=== PATIENT | male | born 1985 | race Hispanic/Latino ===

== ENCOUNTER 2018-06-25 15:32 | Emergency (ER) | payer SELFPAY ==
[~2018-06-25] VITALS: Ht 167.6 cm; Wt 73.6 kg
[2018-06-25 16:51] LABS: HEMATOCRIT 45.5 % (39.0-50.0); HEMOGLOBIN 15.7 g/dl (14.0-18.0); IMMATURE GRANULOCYTES 0.5 % (0.0-5.0); MEAN CELL VOLUME 80.2 fL CALC (80.0-100.0); MEAN CORPUSCULAR HGB 27.7 pG CALC (26.0-32.0); MEAN CORPUSCULAR HGB CONC 34.5 g/L CALC (32.0-36.0); NEUT# 13.75 thou/uL (1.82-7.42); RED BLOOD COUNT 5.67 mill/uL (4.70-6.10); RED CELL DISTRI WIDTH 12.6 % (11.5-15.5)
[2018-06-25 17:04] LABS: ALBUMIN 5.1 g/dL (3.2-5.0); ALKALINE PHOSPHATASE 116 u/l (38-126); ANION GAP 17 (6-22 (CALC)); BILIRUBIN, TOTAL 1.1 mg/dL (0.0-1.4); BUN 14 mg/dL (9-20); BUN/CREATININE RATIO 19 (12-20 (CALC)); CARBON DIOXIDE 24 mmol/l (22-30); CHLORIDE 101 mmol/l (95-108); CREATININE 0.7 mg/dL (0.7-1.3); GFR > 60 ML/MIN (>=60 (CALC)); GFR FOR AFR.AMER. > 60 ML/MIN (>=60 (CALC)); LIPASE 35 u/l (23-300); POTASSIUM 3.7 mmol/l (3.5-5.1); SGOT/AST 44 u/l (17-59); SODIUM 139 mmol/l (137-146); TOTAL PROTEIN 8.9 g/dL (6.3-8.2)
[2018-06-25 17:05] LABS: AMYLASE < 30 u/l (30-110)
[2018-06-25] MEDS ORDERED: PEPCID20 MG PO (18:35)
[2018-06-25 19:10] VITALS: BP 150/77
== END 2018-06-25 19:17 | disposition home or self-care (01) | DRG 392 ==
LOC: ED 15:32
DX: R10.11 Right upper quadrant pain (principal); R10.13 Epigastric pain
CPT/HCPCS: Q9967; S0164

== ENCOUNTER 2018-06-25 22:23 | Inpatient (IN) | payer SELFPAY ==
[~2018-06-25] VITALS: Ht 170.2 cm; Wt 73.9 kg
[~2018-06-25 22:23] MED LIST: PEPCID20 MG PO
--- NOTE | 2018-06-25 22:51 | NUR ---
PT. AMBULATED TO ROOM 8 WITH C/O BEING SEEN HERE TODAY FOR ABD. PAIN. AND PT. STATES THE PAIN HAS NON SUBSIDED BUT HAS GOTTEN WORSE.
--- NOTE | 2018-06-25 23:51 | NUR ---
RESTING ON STRETCHER, NO C/O AT THIS TIME.
[2018-06-26] VITALS (10 sets, daily range): BP systolic 102–121; BP diastolic 52–70
[2018-06-26 00:14] LABS: HEMATOCRIT 44.7 % (39.0-50.0); HEMOGLOBIN 15.3 g/dl (14.0-18.0); IMMATURE GRANULOCYTES 0.4 % (0.0-5.0); MEAN CELL VOLUME 80.3 fL CALC (80.0-100.0); MEAN CORPUSCULAR HGB 27.5 pG CALC (26.0-32.0); MEAN CORPUSCULAR HGB CONC 34.2 g/L CALC (32.0-36.0); NEUT# 13.27 thou/uL (1.82-7.42); RED BLOOD COUNT 5.57 mill/uL (4.70-6.10); RED CELL DISTRI WIDTH 12.6 % (11.5-15.5)
[2018-06-26 00:26] LABS: ALBUMIN 4.8 g/dL (3.2-5.0); ALKALINE PHOSPHATASE 105 u/l (38-126); ANION GAP 17 (6-22 (CALC)); BILIRUBIN, TOTAL 1.3 mg/dL (0.0-1.4); BUN 13 mg/dL (9-20); BUN/CREATININE RATIO 17 (12-20 (CALC)); CARBON DIOXIDE 24 mmol/l (22-30); CHLORIDE 101 mmol/l (95-108); CREATININE 0.8 mg/dL (0.7-1.3); GFR > 60 ML/MIN (>=60 (CALC)); GFR FOR AFR.AMER. > 60 ML/MIN (>=60 (CALC)); POTASSIUM 3.8 mmol/l (3.5-5.1); SGOT/AST 35 u/l (17-59); SODIUM 138 mmol/l (137-146); TOTAL PROTEIN 8.4 g/dL (6.3-8.2)
--- NOTE | 2018-06-26 01:07 | NUR ---
IVF, AND IV MEDS GIVEN PER MD ORDER.
--- NOTE | 2018-06-26 01:26 | NUR ---
PT. DRINKING PO CONTRAST, NO C/O NAUSEA OR VOMITING NOTED.
--- NOTE | 2018-06-26 02:26 | NUR ---
RESTING ON STRETCHER, NO C/O.
--- NOTE | 2018-06-26 03:00 | NUR ---
IN ROOM TO DISCUSS CLINICAL FINDINGS WITH PT. IN [place] LANGUAGE OF [place], AND ALSO TO MAKE HIM AWARE OF ADMISSION. ER WORKERS COMPENSATION [place]. PT. VERBALIZED UNDERSTANDING.
--- NOTE | 2018-06-26 03:21 | NUR ---
PT. STATES HIS ABD. PAIN IS NOW DECREASED TO A 2 ON A SCALE OF 1-10.
--- NOTE | 2018-06-26 03:24 | NUR ---
IV ABT. STARTED PER MD ORDER.
--- NOTE | 2018-06-26 03:34 | NUR ---
PT. TAKEN TO ICU VIA STRETCHER, NO C/O.
--- NOTE | 2018-06-26 03:40 | NUR ---
ARRIVES FROM ER VIA STRETCHER. AMBULATORY WITH STEADY GAIT TO STANDING SCALE, AMBULATORY FROM STANDING SCALE IN HALLWAY TO ROOM #2. NO DISTRESS. PT. REPORTS MILD ABDOMINAL PAIN ON ARRIVAL TO ICU. IV FLUIDS AND FLAGYL RESTARTED AT THIS TIME. ALLERGY BAND APPLIED AT THIS TIME. FRIEND AT BEDSIDE WITH PATIENT. VSS. AFEBRILE.
--- NOTE | 2018-06-26 06:45 | NUR ---
REPORT RECVD FROM CHALO GILLETTE @START OF SHIFT.
--- NOTE | 2018-06-26 07:57 | NUR ---
PT SLEEPING IN BED. NO S/S OF DISTRESS. FRIEND IN CHAIR @BEDSIDE. BREATHING EVEN/UNLABORED, LUNGS CTA. ABD SOFT/TENDER, ACTIVE BS x4. [place]. STRONG PULSES x4. GOOD CAP REFILLS. SKIN WARM/DRY. A&Ox3. PT REPORTED TO BE NPO SINCE MIDNIGHT.
--- NOTE | 2018-06-26 08:57 | NUR ---
PER RESEARCH EPIDEMIOLOGIST, OR ON THEIR WAY TO GET PT.
--- NOTE | 2018-06-26 09:11 | NUR ---
PT OUT THE DOOR WITH OR,RN IN STABLE CONDITION. ALL BELONGINGS LEFT IN ROOM IN BELONGINGS BAG. FRIEND SENT DOWNSTAIRS TO WAIT.
--- NOTE | 2018-06-26 11:02 | NUR ---
DR HERNANDEZ ON UNIT, LOOKING FOR PTS BROTHER TO UPDATE. NO VISITORS HERE FOR PT.
--- NOTE | 2018-06-26 11:53 | NUR ---
PT ARRIVED TO ICU 2 FROM OR BY STRETCHER. PT ASSISTED x2 TO NEW BED WITH UNSTEADY GAIT. PT ON MONITORS. 1L 02 BY GA FOR SAT OF 94%. PT RETURNED TO SLEEP QUICKLY. PT FINISHING NS FROM OR. OR FAXED FIORUCCI ORDERS TO PHARM. REPORT RECVD AT BEDSIDE.
--- NOTE | 2018-06-26 12:05 | NUR ---
PT GIVEN ICE CHIPS. DENIES NAUSEA. BROTHER @BEDSIDE.
--- NOTE | 2018-06-26 12:53 | NUR ---
EXPLAINED MEDICINE TO PT. PT GIVEN 120ml OF APPLE JUICE. DENIES NAUSEA
--- NOTE | 2018-06-26 13:30 | NUR ---
PT SLEEPING. DENIES HUNGRY. BROTHER IS HUNGRY- WILL GIVE HIM A SANDWICH/DRINK.
--- NOTE | 2018-06-26 15:16 | NUR ---
PT RESTING IN BED, NO S/S OF DISTRESS. BROTHER SITTING IN CHAIR IN ROOM. CALLBELL W/IN REACH.
--- NOTE | 2018-06-26 16:43 | NUR ---
PT RESTING IN BED, EASILY AROUSED. NO S/S OF DISTRESS. WILL CONTINUE TO MONITOR.
--- NOTE | 2018-06-26 17:29 | NUR ---
PT SITTING UP AWAKE, ON CELLPHONE. HAPPY FOR DINNER. SITTING UP IN BED, EATING DINNER. DENIES PAIN. DENIES NAUSEA.
--- NOTE | 2018-06-26 18:50 | NUR ---
REPORT FROM Sharmila CALL RN. ASSUMED PT. CARE.
--- NOTE | 2018-06-26 20:05 | NUR ---
PT. RESTING IN BED WITH BROTHER AT BEDSIDE AT THIS TIME. PT. STATES WITH MILD PAIN AT THIS TIME RATES 2/10. DENIES NEED FOR PAIN MEDICATION AT THIS TIME. BOWEL SOUND PRESENT IN ALL QUADS. IV FLUSHES WELL AND IV FLUIDS REINITIATED AT THIS TIME ORDERED. AWAKE, ALERT, ORIENTED X 3. ABDOMINAL INCISIONS CLEAN, WITHOUT DRAINAGE NOTED. PT. ENCOURAGED TO ATTEMPT TO VOID AT THIS TIME. VOIDED 400 CC YARELIS URINE. PT. DENIES PASSING GAS OF YET. LUNGS CTA. PULSES INTACT THROUGHOUT. NO EDEMA NOTED. AFEBRILE. OFFERED FOOD, BUT PT. DECLINES AT THIS TIME. WILL CONTINUE TO MONITOR.
--- NOTE | 2018-06-26 23:35 | NUR ---
PT. REMAINS AWAKE, ALERT, ORIENTED IN NO DISTRESS. RESPS REMAIN EVEN AND UNLABORED. PAIN REMAINS CONTROLLED AT 1/10 AT THIS TIME. IV FLUIDS INFUSING WITHOUT SX OF INFILTRATION. CALL LIGHT REMAIN WITHIN REACH.
--- NOTE | 2018-06-27 02:27 | NUR ---
PT. RESTING IN BED WITH EYES CLOSED AND SNORING RESPIRATIONS. PT. VOICES NO COMPLAINTS OR NEEDS AT THIS TIME. FLAGYL INFUSING WITHOUT SX OF INFILTRATION OR REACTION. WILL CONTINUE TO ASSESS.
[2018-06-27 04:00] VITALS: BP 125/78
--- NOTE | 2018-06-27 05:16 | NUR ---
PT. REMAINS EASILY AROUSABLE TO LIGHT VERBAL STIMULI. RESPS REMAIN EVEN AND UNLABORED. PT. URINAL EMPTIED OF 550 CC STRAW COLORED URINE. VSS. REMAINS AFEBRILE. CALL LIGHT REMAINS WITHIN REACH. REPORTS PAIN LEVEL OF 2/10 BUT DENIES NEED FOR OFFERED PAIN MEDICATION.
[2018-06-27 07:10] VITALS: BP 120/73
--- NOTE | 2018-06-27 07:10 | NUR ---
PATIENT ALERT AND ORIENTED X4, ON ROOM AIR. SCD'S WERE IN PLACE UPON SHIFT. PATIENT ABLE TO WALK TO RESTROOM WITHOUT ANY DIFFICULTY WELL TRASNFER TO CHAIR. VITAL SIGNS TAKEN, AFEBRILE. TOTAL NURSING ASSESSMENT PERFORMED. PATIENT DOES NOT COMPLAINED OF PAIN, ONLY REPORTS PAIN2 OF PAIN SCALE 0-10 WHEN ASKED. UP TO CHAIR NOW READY TO EAT BREAKFAST. CALL LIGHT AND ALL NECESSITIES WITHIN REACH. PATIENT EDUCATED TO USE CALL LIGHT WHEN NEEDS ANY ASSISTANCE.
--- NOTE | 2018-06-27 10:05 | NUR ---
PATIENT IN BED LYING WITHOUT ANY ACUTE DISTRESS SHOWN, PATIENT REPORTS NO COMPLAINTS OF PAIN OR DISCOMFORT. ON ROOM AIR. NO NEED TO ASSIST TO RESTROOM AT THIS TIME. CALL LIGHT WITHIN REACH. EDUCATED ON FLAGYL ANTIBIOTIC GIVEN AND THE TIME IT WILL TAKE TO INFUSE, PATIENT REPORTS UNDERSTANDING AND HAS NO QUESTIONS.
--- NOTE | 2018-06-27 10:45 | NUR ---
Dr Lindsey present at bedside to assess pt and discuss plan of care/dicharge; Tomasa Ye, RN at bedside to interpret; post op care anf follow up explained; continuity writer spoke with MD in regards to low grade temp; MD approved flu vaccine to be administered
[2018-06-27] MEDS ORDERED: OXYCODONE/ACETA1 TA8 PO (10:48)
[2018-06-27 12:05] VITALS: BP 132/84
--- NOTE | 2018-06-27 12:15 | NUR ---
DISCHARGE INSTRUCTIONS AND EDUCATION PROVIDED TO PATIENT. ALL INTERPRETED IN INDONESIAN TO PATIENT. PATIENT VERBALIZED UNDERSTANDING AND HAD NO QUESTIONS.
--- NOTE | 2018-06-27 12:26 | NUR ---
Discharge instructions given. Patient verbalizes understanding of same. Discharged in stable condition via Ambulatory to Home with *Other. All belongings sent with pt.
--- NOTE | 2018-06-27 12:34 | NUR ---
PATIENT WAS ACCOMPANIED WITH CHALO SHUKLA AND MYSELF TO ER ENTRANCE WHERE HIS RIDE WAS AWAITING FOR HIM. PATIENT AMBULATED WITHOUT ANY DIFFICULTY. NO DISTRESS SHOWN. ALL BELONGINGS WITH PATIENT.
== END 2018-06-27 12:26 | disposition home or self-care (01) | DRG 331 ==
LOC: ED 22:23 → ED-I 06-26 02:48 → ED 06-26 03:06 → ICU 06-26 03:07
PROVIDERS: Emergency Medicine; ADMIT Surgery; ATTEND Surgery
PROC: 0DTJ4ZZ Resection of Appendix, Percutaneous Endoscopic Approach (ICD-10-PCS; principal; 2018-06-26)
PROC: 0DBN4ZZ Excision of Sigmoid Colon, Percutaneous Endoscopic Approach (ICD-10-PCS; 2018-06-26)
PROC: 3E02340 Introduction of Influenza Vaccine into Muscle, Percutaneous Approach (ICD-10-PCS; 2018-06-27)
DX: K35.80 Unspecified acute appendicitis (principal); K63.89 Other specified diseases of intestine; Z23 Encounter for immunization
CPT/HCPCS: J0131; J2270; J2710; Q9967; S0164